=== PATIENT | female | born 1955 | race African-American/Black ===

== ENCOUNTER 2016-11-10 20:48 | Inpatient (IN) | payer MEDICARE, OTHER ==
[~2016-11-10] VITALS: Ht 175.3 cm; Wt 113.4 kg
[~2016-11-10 20:48] MED LIST: ASPIR 8181 MG ORAL; HYDROCHLOROTHIA25 MG ORAL; LISINOPRIL20 MG ORAL; SIMVASTATIN5 MG ORAL
[2016-11-10 21:45] VITALS: BP 98/60
[2016-11-10] MEDS ORDERED: Solu-MEDROL 125mg Inj IVP ONE (22:00)
[2016-11-10] MEDS ORDERED: DiphenhydrAMINE 50mg/ml Inj IVP ONE (22:00)
[2016-11-10] MEDS ORDERED: Famotidine 20 MG/ 2ML VIAL IVP ONE (22:00)
[2016-11-10 22:21] LABS: BASOPHILS % (AUTO) 1.4 % (0.0-2.0); EOSINOPHILS % (AUTO) 1.8 % (0.0-3.0); LYMPHOCYTES % (AUTO) 42.1 % (20.0-45.0); MEAN CORPUSCULAR HEMOGLOBIN 26.7 PG (27.0-31.0); MEAN CORPUSCULAR HGB CONC 31.9 G/DL (32.0-36.0); MEAN CORPUSCULAR VOLUME 84 FL (80-99); MEAN PLATELET VOLUME 5.7 FL (6.5-10.1); MONOCYTES % (AUTO) 3.3 % (1.0-10.0); NEUTROPHILS % (AUTO) 51.4 % (45.0-75.0); PLATELET COUNT 343 K/UL (150-450); RED BLOOD COUNT 4.11 M/UL (4.20-5.40); RED CELL DISTRIBUTION WIDTH 15.9 % (11.6-14.8); WHITE BLOOD COUNT 8.2 K/UL (4.8-10.8)
--- NOTE | 2016-11-10 22:28 | Emergency Room Report ---
History of Present Illness General Chief Complaint: Allergic Reaction Source: Patient Present Illness HPI This is a 61-year-old the male with a history hypertension. She was admitted last year for angioedema secondary to CHARLES inhibitor. She accidentally took her 's lisinopril this morning. Around 6 PM her upper lips or swelling. No other complaint. No shows of breath. No tongue edema. No neck edema. Because it did not get better she came here to be evaluated. No other complaint. Allergies: Coded Allergies: No Known Allergies (Unverified , 04/21/16) Patient History Past Medical History: see triage record, old chart reviewed, HTN Past Surgical History: other Pertinent Family History: none Social History: Denies: smoking Last Menstrual Period: NONE Now: No Immunizations: other Reviewed Nursing Documentation: PMH: Agreed, PSxH: Agreed Nursing Documentation-PMH Hx Cardiac Problems: Yes Hx Hypertension: Yes Hx Asthma: Yes Hx Cancer: No Hx Gastrointestinal Problems: No Hx Neurological Problems: No Review of Systems Eye: Denies: blurred vision, eye pain ENT: Denies: ear pain, nose congestion, throat swelling Respiratory: Denies: cough, shortness of breath Cardiovascular: Denies: chest pain, palpitations Gastrointestinal: Denies: abdominal pain, diarrhea, nausea, vomiting Musculoskeletal: Denies: back pain, joint pain Skin: Denies: rash Neurological: Denies: headache, numbness Endocrine: Denies: increased thirst, increased urine Hematologic/Lymphatic: Denies: easy bruising All Other Systems: negative except mentioned in HPI Physical Exam Vital Signs Date Time Temp Pulse Resp B/P Pulse Ox O2 Delivery O2 Flow Rate FiO2 11/10/16 21:35 98.6 70 18 98/60 99 Room Air vitals stable Sp02 EP Interpretation: reviewed, normal General Appearance: well appearing, no apparent distress, alert Head: normocephalic, atraumatic Eyes: bilateral eye EOMI, bilateral eye PERRL ENT: hearing grossly normal, normal pharynx, other - angioedema of upper lip. no tongue edema Neck: full range of motion, supple, no meningismus Respiratory: chest non-tender, lungs clear, normal breath sounds Cardiovascular #1: regular rate, rhythm, no murmur Gastrointestinal: normal bowel sounds, non tender, no mass, no organomegaly, no bruit, non-distended Musculoskeletal: back normal, gait/station normal, normal range of motion Psychiatric: mood/affect normal Skin: warm/dry Medical Decision Making Diagnostic Impression: Primary Impression: Angioedema of lips Qualified Codes: T78.3XXA - Angioneurotic edema, initial encounter ER Course Patient with CHARLES inhibitor-induced angioedema. Her swelling slightly worsened since she's been here. No respiratory issue however. No tongue edema. Because of the worsening of symptoms, will admit for monitoring. I will admit the patient to Dr. Juarez since he admitted her before. Initially, patient and her want to leave. I explained the potential life-threatening issue. Convince her to stay. Lab Results Impression labs unremarkable EKG Diagnostic Results EKG Time: 01:30 Rate: normal Rhythm: NSR ST Segments: no acute changes Rhythm Strip Diag. Results Rhythm Strip Time: 01:31 EP Interpretation: yes Rate: 80 Rhythm: NSR Last Vital Signs Date Time Temp Pulse Resp B/P Pulse Ox O2 Delivery O2 Flow Rate FiO2 11/10/16 21:35 98.6 70 18 98/60 99 Room Air Status: improved Disposition: ADMITTED INPATIENT Condition: Serious FIDELIA LOBATO M.D. Nov 10, 2016 22:28
[2016-11-10 22:35] LABS: CREATININE 1.2 mg/dL (0.5-0.9); GLOMERULAR FILTRATION RATE 55.6 mL/min (>60); POTASSIUM 3.4 mEQ/L (3.4-4.9)
[2016-11-10 23:34] VITALS: BP 122/63
[2016-11-11] VITALS (7 sets, daily range): BP systolic 106–123; BP diastolic 60–80
[2016-11-11] MEDS ORDERED: LISINOPRIL40 MG ORAL (01:17)
[2016-11-11] MEDS ORDERED: SIMVASTATIN5 MG ORAL (01:24)
[2016-11-11] MEDS ORDERED: LOSARTAN-HCTZ1 EAC1 ORAL (01:24)
[2016-11-11] MEDS ORDERED: PAROXETINE HC12.5 MG ORAL (01:24)
[2016-11-11] MEDS: Solu-MEDROL 125mg Inj IVP SCH ×3 (09:00→20:36)
[2016-11-11] MEDS: DiphenhydrAMINE 50mg/ml Inj IVP SCH ×3 (09:14→20:36)
--- NOTE | 2016-11-11 16:03 | History & Physical ---
History and Physical History & Physicial dictated [id number] TRINI CHICAS Nov 11, 2016 16:03
[2016-11-11] MEDS ORDERED: Zolpidem 5mg tab ORAL PRN (21:30)
[2016-11-12] VITALS: BP 126/72
--- NOTE | 2016-11-12 00:45 | History and Physical Report ---
DATE OF ADMISSION: 11/11/2016 CHIEF COMPLAINT: The patient had lip swelling after she took lisinopril accidently. HISTORY OF PRESENT ILLNESS: This is a 61-year-old, female with history of hypertension. The patient said that she took lisinopril of her by mistake. She does have a history of angioedema as a result of CHARLES inhibitors and about 10 hours later she started to getting swelling of her lips and she came to the emergency room. She was diagnosed with angioedema and was admitted. PAST MEDICAL HISTORY: Unremarkable except hypertension. MEDICATIONS: Reviewed in the EMR. SOCIAL HISTORY: No history of smoking or alcohol abuse. ALLERGIES: CHARLES inhibitors. REVIEW OF SYSTEMS: Noncontributory. PHYSICAL EXAMINATION: GENERAL: The patient is a pleasant female, in no acute distress. VITAL SIGNS: Blood pressure is 117/73, pulse 85, and temperature 98.2 degrees. HEENT: [place] conjunctivae. Anicteric sclerae. Lips are edematous and tongue is normal. NECK: Supple. LUNGS: Clear to auscultation. HEART: S1 and S2 without murmurs or rubs. ABDOMEN: Soft and nontender. EXTREMITIES: No cyanosis or edema. LABORATORY FINDINGS: The CBC shows a WBC of 8.2, hematocrit 34.4, hemoglobin 11, and platelets 343,000. Chemistry panel shows serum sodium of 139, potassium 3.4, chloride 97, CO2 31, BUN 21, and creatinine 1.2. Calcium is 10. ASSESSMENT: This is a 61-year-old female, who is admitted with nasal angioedema after accidentally she took the lisinopril. She has known history of angioedema caused by CHARLES inhibitors. PLAN: The patient was started on IV Solu-Medrol as well as Benadryl IV. She will be monitored and once her edema improves she can go home. Silvestre Juarez M.D. DR: EDIS JOB#: [id number] CC:
[2016-11-12 04:00] VITALS: BP 119/70
[2016-11-12] MEDS: DiphenhydrAMINE 50mg/ml Inj IVP SCH (05:45)
[2016-11-12] MEDS: Solu-MEDROL 125mg Inj IVP SCH (05:46)
[2016-11-12 08:00] VITALS: BP 128/67
--- NOTE | 2016-11-12 08:30 | General Progress Note ---
Assessment/Plan Status: stable Status Narrative Covering for Dr Silvestre Juarez- Patient wants to be discharged- Assessment/Plan This is a 61-year-old female, who is admitted with nasal angioedema after accidentally she took the lisinopril. She has known history of angioedema caused by CHARLES inhibitors. Plan: DC Home- FU in PMD Office- Back to ER if swelling recurs- Benadryl prn Subjective ROS Limited/Unobtainable: No Constitutional: Reports: other - anxious to go home- Allergies: Coded Allergies: No Known Allergies (Unverified , 04/21/16) Objective Last 24 Hour Vital Signs Date Time Temp Pulse Resp B/P Pulse Ox O2 Delivery O2 Flow Rate FiO2 11/12/16 04:00 62 11/12/16 04:00 97.2 58 20 119/70 96 Room Air 11/12/16 00:00 97.3 87 20 126/72 96 Room Air 11/12/16 00:00 86 11/11/16 20:00 98.0 77 20 123/80 96 Room Air 11/11/16 20:00 85 11/11/16 16:00 84 11/11/16 15:29 98.2 85 20 117/73 99 Room Air 11/11/16 12:00 81 11/11/16 11:25 98.0 80 20 113/70 97 Room Air Intake and Output 11/11/16 11/12/16 19:00 07:00 Intake Total 1200 ml 240 ml Balance 1200 ml 240 ml Intake Oral 1200 ml 240 ml # Voids 6 3 Height (Feet): 5 Height (Inches): 9.00 Weight (Pounds): 250 General Appearance: no apparent distress, other - ambulating and swelling gone Cardiovascular: normal rate Respiratory/Chest: lungs clear Abdomen: soft MAYCO LANDA Nov 12, 2016 08:30
--- NOTE | 2016-11-12 08:31 | Discharge Instructions ---
Discharge Instructions Discharge Instructions Follow up with: fu with pmd- if symptoms recur to ER For Congestive Heart Failure Reminder Report to your physician any weight gain of 5 pounds or more in one week. MAYCO LANDA Nov 12, 2016 08:31
--- NOTE | 2016-11-13 07:06 | Discharge Summary ---
Discharge Summary Hospital Course Date of Admission Nov 11, 2016 at 00:15 Date of Discharge Nov 12, 2016 at 13:36 Admitting Diagnosis angioedema HPI Shamar Barba is a 61 year old female who was admitted on Nov 11, 2016 at 00:15 for Angioedema Hospital Course dc summary #[id number] Discharge Medications Continued Medications: Hydrochlorothiazide* (Hydrochlorothiazide*) 25 Mg Tablet 25 MG ORAL DAILY, TAB Paroxetine Hcl* (Paroxetine Hcl*) 12.5 Mg Tab.er.24h 10 MG ORAL DAILY, TAB Simvastatin (Zocor) 5 Mg Tablet 5 MG ORAL BEDTIME, TAB Discharge Condition Upon Discharge: stable Discharge Disposition Patient was discharged to Home () Discharge Diagnoses: Discharge Instructions Discharge Instructions Follow up with: fu with pmd- if symptoms recur to ER Special Instructions I have been assigned to complete a D/C Summary on this account. I was not involved in the patient management Sujey Valentin NP ([facility]) Nov 13, 2016 07:06
--- NOTE | 2016-11-13 23:31 | Discharge Summary 2 SIG ---
DATE OF ADMISSION: 11/11/2016 DATE OF DISCHARGE: 11/12/2016 REASON FOR ADMISSION: 61-year-old female with a history of hypertension, was admitted last year for angioedema secondary to CHARLES inhibitor. This time, she accidentally took her 's lisinopril earlier in the morning and around 6 in the afternoon started to see her upper lip swelling, symptoms got worse and she came for evaluation to ED. The patient denied shortness of breath. Denied difficulty swallowing. No tongue edema. No neck edema. In the emergency department, her symptoms got worse and she was admitted. Respiratory status was stable, no difficulties in breathing. Blood pressure was on the low side - 98/60 and pulse oximetry was stable on room air. ADMITTING DIAGNOSES: 1. Angioedema, CHARLES induced. 2. Hypertension. 3. History of angioedema secondary to CAHRLES. HOSPITAL STAY: The patient was admitted. The patient started on IV steroids and Benadryl as needed. After 24 hours, swelling resolved. No antihypertensive at this time. Blood pressure was on the low side. The patient was eager to go home. Respiratory status was stable. Pulse oximetry was stable on room air. No respiratory complaints. No difficulty swallowing. The patient was stable for discharge. The patient discharged home. Patient was reminded to to stay away from CHARLES inhibitor since it is a known factors in inducing her recurrent angioedema. Due to the rapid and unexpected improvement in patient condition, the patient was discharged in one day. DISCHARGE DIAGNOSES: 1. Angioedema, CHARLES induced. 2. 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 3. Hypertension. DISCHARGE MEDICATIONS: See medication reconciliation list. DISCHARGE INSTRUCTIONS: The patient discharged home. Follow up with the primary medical doctor. Reminded the patient that if face or lip swelling recurs or start to experience difficulties in breathing, come back to emergency room immediately, Silvestre Juarez M.D. I have been assigned to dictate discharge summary on this account and I was not involved in the patient's management. Sujey Valentin ([facility] HospitalJose Manuel NAlPAl DR: DORIE JOB#: [id number] CC: JAVY
--- NOTE | 2016-11-15 16:26 | Cardiology Report ---
APPROVED REPORT EKG Measurement Heart [id number] Normal sinus rhythm Septal infarct, age undetermined Abnormal ECG
== END 2016-11-12 13:36 | disposition home or self-care (01) | DRG 918 ==
LOC: EMR 22:00 → 2W 11-11 00:15 → EDBEDREQ 11-11 00:27 → 2E 11-11 06:19
DX: T46.4X1A Poisoning by angiotensin-converting-enzyme inhibitors, accidental (unintentional), initial encounter (principal); T78.3XXA Angioneurotic edema, initial encounter; I10 Essential (primary) hypertension; Y92.009 Unspecified place in unspecified non-institutional (private) residence as the place of occurrence of the external cause; Z88.8 Allergy status to other drugs, medicaments and biological substances
CPT/HCPCS: 36415; 80048; 85025; 93005